=== PATIENT | male | born 1975 | race Caucasian/White ===

== ENCOUNTER 2020-09-26 11:49 | Outpatient (REF) | payer MEDICARE, MEDICAID, SELFPAY | END 2020-09-26 11:50 | disposition home or self-care (01) | LOC: HO.LAB 11:49 | PROVIDERS: PCP Otolaryngology; Visit Provider Internal Medicine | DX: Z20.828 Contact with and (suspected) exposure to other viral communicable diseases (principal) | CPT/HCPCS: C9803; U0003 ==

== ENCOUNTER 2023-01-21 15:03 | Emergency (ER) | payer MEDICARE, MEDICAID, SELFPAY ==
--- NOTE | 2023-01-21 | ECG_ITS ---
Test Reason : prolonged QT Blood Pressure : / mmHG Vent. Rate : 056 BPM Atrial Rate : 056 BPM P-R Int : 166 ms QRS Dur : 086 ms QT Int : 450 ms P-R-T Axes : 082 074 067 degrees QTc Int : 434 ms Sinus bradycardia Otherwise normal ECG No previous ECGs available Referred By: Eugenie Bates Electronically Signed By:RONNY OTTO MD
--- NOTE | 2023-01-21 15:17 | ED_ITS ---
HPI - Psych General Chief Complaint: Psychiatric Symptoms <LUIS DANIEL Cavazos - Last Filed: 01/21/23 15:18> Stated Complaint: Crisis <LUIS DANIEL Cavazos - Last Filed: 01/21/23 15:18> Time Seen by Provider: 01/21/23 15:45 <LUIS DANIEL Cavazos - Last Filed: 01/21/23 15:18> Source: patient <Eugenie Bates NP - Last Filed: 01/21/23 23:55> Mode of arrival: ambulatory <Eugenie Bates NP - Last Filed: 01/21/23 23:55> Limitations: no limitations <Eugenie Bates NP - Last Filed: 01/21/23 23:55> History of Present Illness HPI Narrative: 47-year-old male presents for crisis evaluation. States that he has worsening depression, has had 4 family members in the past 2 years, father the day after [place] Day last year, mother in November, and states that 2 of his girlfriend's have over the past 2 years. Patient states that everything is catching up to him. Also states that he has lost 100 lb due to depression. <Eugenie Bates NP - Last Filed: 01/21/23 23:55> MD complaint: feels depressed <Eugenie Bates NP - Last Filed: 01/21/23 23:55> Onset (ago): year(s) <Eugenie Bates NP - Last Filed: 01/21/23 23:55> Duration: getting worse <Eugenie Bates NP - Last Filed: 01/21/23 23:55> History of same: No <Eugenie Bates NP - Last Filed: 01/21/23 23:55> Relieving factors: none <Eugenie Bates NP - Last Filed: 01/21/23 23:55> Context: significant life stressor <Eugenie Bates NP - Last Filed: 01/21/23 23:55> Associated psychiatric symptoms: depression <Eugenie Bates NP - Last Filed: 01/21/23 23:55> Associated symptoms: denies other symptoms <Eugenie Bates NP - Last Filed: 01/21/23 23:55> Treatments prior to arrival: none <Eugenie Bates NP - Last Filed: 01/21/23 23:55> Related Data Home Medications: Home Medications Medication Instructions Recorded Confirmed bupropion HCl 300 mg 24 hr tablet, 1 tab PO QAM 01/21/23 01/21/23 extended release buspirone 10 mg tablet 10 mg PO CONT. PER PROTOCOL 01/21/23 01/21/23 clonazepam 1 mg tablet 1 mg PO CONT. PER PROTOCOL 01/21/23 01/21/23 gabapentin 600 mg tablet 1 tab PO TID 01/21/23 01/21/23 venlafaxine 150 mg 1 cap PO BEDTIME 01/21/23 01/21/23 capsule,extended release 24 hr venlafaxine 75 mg capsule,extended 1 cap PO QPM 01/21/23 01/21/23 release 24 hr <LUIS DANIEL Cavazos - Last Filed: 01/21/23 15:18> Allergies/Adverse Reactions: Allergies Allergy/AdvReac Type Severity Reaction Status Date / Time egg Allergy Gastrointestinal Verified 01/21/23 15:53 Upset mayonnaise Allergy Gastrointestinal Verified 01/21/23 15:53 Upset onion Allergy Gastrointestinal Verified 01/21/23 15:53 Upset Peppers, Green Allergy Gastrointestinal Verified 01/21/23 15:53 Upset <LUIS DANIEL Cavazos - Last Filed: 01/21/23 15:18> Review of Systems Review of Systems: Constitutional: No Fever, No Chills, positive unintentional weight loss Cardiovascular: No Chest Pain, No SOB Respiratory: No Cough, No Sputum, No Dyspnea Gastrointestinal: No Nausea, No Vomiting, No Diarrhea, No Hematochezia, No Melena Genitourinary: No Dysuria, No Urinary Frequency, No Hematuria Musculoskeletal: No Myalgias Skin: No Skin Lesions, No rash Neuro: No Weakness, No Numbness, No Paresthesias, No Dizziness, No Headache Psych: positive Anxiety, positive Depression, no SI HI <TITO Batista Last Filed: 01/21/23 23:55> Yes all other systems are reviewed and are negative <TITO Batista Last Filed: 01/21/23 23:55> PMFSH Past Medical History Attestation statement: The following information was validated with the patient. <Eugenie Bates NP - Last Filed: 01/21/23 23:55> Source: old records reviewed <Eugenie Bates NP - Last Filed: 01/21/23 23:55> Social History Social History: Social History Alcohol intake: never Smoked in Last 30 Days: Yes Use of substances other than those prescribed or required for medical reasons: Yes Substance Use Type: Marijuana Advance Directives: No Advance Directives Information Provided: Yes <LUIS DANIEL Cavazos - Last Filed: 01/21/23 15:18> Physical Exam Vital Signs: Vital Signs: Last Vital Signs Temp 98.2 F 01/22/23 08:50 Pulse 104 H 01/22/23 08:50 Resp 14 01/22/23 08:50 BP 152/86 H 01/22/23 08:50 Pulse Ox 93 01/22/23 08:50 O2 Del Method 01/22/23 08:50 BMI result Body Mass Index 24.1 <LUIS DANIEL Cavazos - Last Filed: 01/21/23 15:18> Vital Signs: Last Vital Signs Temp 98.2 F 01/22/23 08:50 Pulse 104 H 01/22/23 08:50 Resp 14 01/22/23 08:50 BP 152/86 H 01/22/23 08:50 Pulse Ox 93 01/22/23 08:50 O2 Del Method 01/22/23 08:50 BMI result Body Mass Index 24.1 <Eugenie Bates NP - Last Filed: 01/21/23 23:55> Vital Signs: Last Vital Signs Temp 98.2 F 01/22/23 08:50 Pulse 104 H 01/22/23 08:50 Resp 14 01/22/23 08:50 BP 152/86 H 01/22/23 08:50 Pulse Ox 93 01/22/23 08:50 O2 Del Method 01/22/23 08:50 BMI result Body Mass Index 24.1 <Ankur Harrison MD - Last Filed: 01/22/23 14:05> Appearance: Alert. Oriented X3. Tearful. Eyes: Pupils equal, round and reactive to light. ENT: Pharynx normal. Neck: Normal inspection. Neck supple. CVS: Normal heart rate and rhythm. Pulses normal. Respiratory: No respiratory distress. Breath sounds normal. Extremities: No lower extremity edema. Gait well balanced well coordinated. Neuro: No motor deficit. No sensory deficit. Cranial nerves 2-12 intact. <Kalina Bates NP - Last Filed: 01/21/23 23:55> Course Course Course Narrative: This is an RME: Additional HPI, ROS, PE not included below will be deferred to primary provider. 47-year-old male presents with anxiety, depression, reports multiple deaths in the family and close acquaintances, worsening over the past few days has not been eating and drinking well. Has little energy to do things. Reports constant fatigue. According to family has been hallucinating and not taking care of self. Patient denies hallucinations. Denies drugs, alcohol tobacco. Denies medical complaints. Rapid physical exam benign Plan medical clearance evaluation by behavioral health team. <LUIS DANIEL Cavazos - Last Filed: 01/21/23 15:18> This is an RME: Additional HPI, ROS, PE not included below will be deferred to primary provider. 47-year-old male presents with anxiety, depression, reports multiple deaths in the family and close acquaintances, worsening over the past few days has not been eating and drinking well. Has little energy to do things. Reports constant fatigue. According to family has been hallucinating and not taking care of self. Patient denies hallucinations. Denies drugs, alcohol tobacco. Denies medical complaints. Rapid physical exam benign Plan medical clearance evaluation by behavioral health team. 16:00 47-year-old male presents for crisis evaluation for multiple deaths and wo rsening depression. States he has an initial weight loss of over 100 lb over the past 2 years, relates it directly to words depression and having poor appetite. He states to be continuously tired. He is tearful during our discussion, he does not report suicidal or homicidal ideations. States that he is so depressed he does know which do with himself. Labs are pending. Crisis consult is pending. 19:40 N consult complete, plan of care is for follow-up in the morning re- evaluation. Physician observation at this time <Eugenie Bates NP - Last Filed: 01/21/23 23:55> Reevaluation(s) Reevaluation #1: 47-year-old male feeling depressed but no SI or HI, no auditory halluci nation seen and examined by care team we both agreed on the plan. Patient will be discharged to his home in [facility] safe to be discharged. <Ankur Harrison MD - Last Filed: 01/22/23 14:05> Time: 14:04 <Ankur Harrison MD - Last Filed: 01/22/23 14:05> Medications Administered Generic Name Dose Route Start Last Admin Trade Name Freq PRN Reason Stop Dose Admin Bupropion HCl 300 mg 01/21/23 16:00 01/22/23 09:31 Bupropion Hcl Xl 300 Mg Tab.Er.24h PO 300 mg DAILY DEYANIRA Administration Buspirone HCl 15 mg 01/22/23 09:00 01/22/23 09:31 Buspirone Hcl 10 Mg Tablet PO 15 mg BID@0900,1500 DEYANIRA Administration Buspirone HCl 20 mg 01/21/23 21:00 01/21/23 20:27 Buspirone Hcl 10 Mg Tablet PO 20 mg BEDTIME DEYANIRA Administration Clonazepam 1 mg 01/21/23 21:00 01/22/23 09:32 Clonazepam 1 Mg Tablet PO 1 mg TID DEYANIRA Administration Gabapentin 600 mg 01/21/23 16:00 01/22/23 09:32 Gabapentin 600 Mg Tablet PO 600 mg TID DEYANIRA Administration Venlafaxine HCl 75 mg 01/21/23 21:00 01/21/23 20:27 Venlafaxine Hcl Er 75 Mg Cap.Er.24h PO 75 mg BEDTIME DEYANIRA Administration Venlafaxine HCl 150 mg 01/21/23 21:00 01/21/23 20:27 Venlafaxine Hcl Er 150 Mg Cap.Er.24h PO 150 mg BEDTIME DEYANIRA Administration Discontinued Medications Generic Name Dose Route Start Last Admin Trade Name Freq PRN Reason Stop Dose Admin Clonazepam 1 mg 01/21/23 16:01 01/21/23 16:33 Clonazepam 1 Mg Tablet PO 01/21/23 16:02 1 mg ONCE ONE Administration Nicotine 21 mg 01/21/23 16:50 01/21/23 18:19 Nicotine 21 Mg Patch.Td24 TRANSDERMA 01/21/23 16:51 21 mg ONCE ONE Administration <LUIS DANIEL Cavazos - Last Filed: 01/21/23 15:18> Medications Administered Generic Name Dose Route Start Last Admin Trade Name Freq PRN Reason Stop Dose Admin Bupropion HCl 300 mg 01/21/23 16:00 01/22/23 09:31 Bupropion Hcl Xl 300 Mg Tab.Er.24h PO 300 mg DAILY DEYANIRA Administration Buspirone HCl 15 mg 01/22/23 09:00 01/22/23 09:31 Buspirone Hcl 10 Mg Tablet PO 15 mg BID@0900,1500 DEYANIRA Administration Buspirone HCl 20 mg 01/21/23 21:00 01/21/23 20:27 Buspirone Hcl 10 Mg Tablet PO 20 mg BEDTIME DEYANIRA Administration Clonazepam 1 mg 01/21/23 21:00 01/22/23 09:32 Clonazepam 1 Mg Tablet PO 1 mg TID DEYANIRA Administration Gabapentin 600 mg 01/21/23 16:00 01/22/23 09:32 Gabapentin 600 Mg Tablet PO 600 mg TID DEYANIRA Administration Venlafaxine HCl 75 mg 01/21/23 21:00 01/21/23 20:27 Venlafaxine Hcl Er 75 Mg Cap.Er.24h PO 75 mg BEDTIME DEYANIRA Administration Venlafaxine HCl 150 mg 01/21/23 21:00 01/21/23 20:27 Venlafaxine Hcl Er 150 Mg Cap.Er.24h PO 150 mg BEDTIME DEYANIRA Administration Discontinued Medications Generic Name Dose Route Start Last Admin Trade Name Freq PRN Reason Stop Dose Admin Clonazepam 1 mg 01/21/23 16:01 01/21/23 16:33 Clonazepam 1 Mg Tablet PO 01/21/23 16:02 1 mg ONCE ONE Administration Nicotine 21 mg 01/21/23 16:50 01/21/23 18:19 Nicotine 21 Mg Patch.Td24 TRANSDERMA 01/21/23 16:51 21 mg ONCE ONE Administration <Eugenie Bates NP - Last Filed: 01/21/23 23:55> Medications Administered Generic Name Dose Route Start Last Admin Trade Name Freq PRN Reason Stop Dose Admin Bupropion HCl 300 mg 01/21/23 16:00 01/22/23 09:31 Bupropion Hcl Xl 300 Mg Tab.Er.24h PO 300 mg DAILY DEYANIRA Administration Buspirone HCl 15 mg 01/22/23 09:00 01/22/23 09:31 Buspirone Hcl 10 Mg Tablet PO 15 mg BID@0900,1500 DEYANIRA Administration Buspirone HCl 20 mg 01/21/23 21:00 01/21/23 20:27 Buspirone Hcl 10 Mg Tablet PO 20 mg BEDTIME DEYANIRA Administration Clonazepam 1 mg 01/21/23 21:00 01/22/23 09:32 Clonazepam 1 Mg Tablet PO 1 mg TID DEYANIRA Administration Gabapentin 600 mg 01/21/23 16:00 01/22/23 09:32 Gabapentin 600 Mg Tablet PO 600 mg TID DEYANIRA Administration Venlafaxine HCl 75 mg 01/21/23 21:00 01/21/23 20:27 Venlafaxine Hcl Er 75 Mg Cap.Er.24h PO 75 mg BEDTIME DEYANIRA Administration Venlafaxine HCl 150 mg 01/21/23 21:00 01/21/23 20:27 Venlafaxine Hcl Er 150 Mg Cap.Er.24h PO 150 mg BEDTIME DEYANIRA Administration Discontinued Medications Generic Name Dose Route Start Last Admin Trade Name Rmq PRN Reason Stop Dose Admin Clonazepam 1 mg 01/21/23 16:01 01/21/23 16:33 Clonazepam 1 Mg Tablet PO 01/21/23 16:02 1 mg ONCE ONE Administration Nicotine 21 mg 01/21/23 16:50 01/21/23 18:19 Nicotine 21 Mg Patch.Td24 TRANSDERMA 01/21/23 16:51 21 mg ONCE ONE Administration <Ankur Harrison MD - Last Filed: 01/22/23 14:05> Medical Decision Making Differential Diagnosis Differential Diagnoses: The differential diagnosis associated with the presentation includes <Eugenie Bates NP - Last Filed: 01/21/23 23:55> Depression, complex grieving <Eugenie Bates NP - Last Filed: 01/21/23 23:55> Admission/Observation Consideration of admission/observation: Escalation of care including admission/observation considered <Eugenie Bates NP - Last Filed: 01/21/23 23:55> M5 admission recommended by this RECRUITING MANAGER <Eugenie Bates NP - Last Filed: 01/21/23 23:55> Consult Healthcare Provider Management of the patient was discussed with: Behavioral Health Provider <Eugenie Bates NP - Last Filed: 01/21/23 23:55> Lab Data MDM Lab Attestation statement: I reviewed the patient's lab results. <Eugenie Bates NP - Last Filed: 01/21/23 23:55> Result Diagrams: 01/21/23 16:16 01/21/23 16:16 <LUIS DANIEL Cavazos - Last Filed: 01/21/23 15:18> Labs: Lab Results 01/21/23 01/21/23 01/21/23 Range/Units 15:58 15:58 15:58 WBC (4.8-10.8) X10*3/uL RBC (4.60-5.80) X10*6/uL Hgb (14.0-18.0) g/dl Hct (42.0-52.0) % MCV (80.0-98.0) fL MCH (27.0-33.0) pg MCHC (31.0-36.0) g/dl RDW (11.0-16.0) % Plt Count (160-400) X10*3/uL MPV (9.4-12.4) fL Immature Gran % (Auto) (0.0-0.4) % Neut % (Auto) (45-73) % Lymph % (Auto) (20-40) % [place] % (Auto) (2-11) % Eos % (Auto) (0-4) % Baso % (Auto) (0-2) % Lymph # (Auto) (1.2-4.9) X10*3/uL [place] # (Auto) (0.1-1.2) X10*3/uL Eos # (Auto) (0.0-0.4) X10*3/uL Baso # (Auto) (0.0-0.2) X10*3/uL Abs Immat Gran (auto) (0.00-0.03) X10*3/uL Absolute Neuts (auto) (2.0-8.3) x10*3/uL Absolute Nucleated RBC (0.0-0.012) X10*3/uL Nucleated RBC % (auto) (0.0-0.2) /100WBC Sodium (135-145) mmol/L Potassium (3.3-5.1) mmol/L Chloride (96-108) mmol/L Carbon Dioxide (22-29) mmol/L Anion Gap (12-20) BUN (9-16) mg/dL Creatinine (0.5-1.4) mg/dL Estim Creat Clear Calc Estimated GFR Random Glucose (60-115) mg/dL Calcium (8.4-10.2) mg/dL Magnesium (1.6-2.6) mg/dL Total Bilirubin (0.0-1.0) mg/dL AST (5-37) U/L ALT (0-40) U/L Alkaline Phosphatase (39-117) U/L Total Protein (6.5-8.0) g/dL Albumin (3.5-5.0) g/dL Urine Color Yellow Urine Appearance Clear Urine pH 5.0 (5.0-9.0) Ur Specific [place] 1.015 (1.005-1.025) Urine Protein Negative (Neg-Trace) mg/dL Urine Glucose (UA) Negative (Negative) mg/dL Urine Ketones Negative (Negative) mg/dL Urine Blood Negative (Negative) Urine Nitrite Negative (Negative) Ur Leukocyte Esterase Negative (Negative) Salicylates (15-30) mg/dL Urine Opiates Screen POSITIVE H (Not Detect) Urine Fentanyl Screen POSITIVE H (Not Detect) Acetaminophen (<30) mcg/mL Ur Barbiturates Screen Not Detected (Not Detect) Ur Phencyclidine Scrn Not Detected (Not Detect) Ur Amphetamines Screen Not Detected (Not Detect) U Benzodiazepines Scrn POSITIVE H (Not Detect) Urine Cocaine Screen POSITIVE H (Not Detect) U Marijuana (THC) Screen POSITIVE H (Not Detect) Ethyl Alcohol mg/dL COVID-19 (MOLLY) Negative (Negative) COVID-19 Clin Com See Note 01/21/23 01/21/23 Range/Units 16:16 16:16 WBC 7.2 (4.8-10.8) X10*3/uL RBC 4.63 (4.60-5.80) X10*6/uL Hgb 13.5 L (14.0-18.0) g/dl Hct 40.5 L (42.0-52.0) % MCV 87.5 (80.0-98.0) fL MCH 29.2 (27.0-33.0) pg MCHC 33.3 (31.0-36.0) g/dl RDW 13.6 (11.0-16.0) % Plt Count 203 (160-400) X10*3/uL MPV 9.7 (9.4-12.4) fL Immature Gran % (Auto) 0.3 (0.0-0.4) % Neut % (Auto) 60.6 (45-73) % Lymph % (Auto) 25.8 (20-40) % [place] % (Auto) 5.4 (2-11) % Eos % (Auto) 7.2 H (0-4) % Baso % (Auto) 0.7 (0-2) % Lymph # (Auto) 1.9 (1.2-4.9) X10*3/uL [place] # (Auto) 0.4 (0.1-1.2) X10*3/uL Eos # (Auto) 0.5 H (0.0-0.4) X10*3/uL Baso # (Auto) 0.1 (0.0-0.2) X10*3/uL Abs Immat Gran (auto) 0.02 (0.00-0.03) X10*3/uL Absolute Neuts (auto) 4.4 (2.0-8.3) x10*3/uL Absolute Nucleated RBC 0.000 (0.0-0.012) X10*3/uL Nucleated RBC % (auto) 0.0 (0.0-0.2) /100WBC Sodium 140 (135-145) mmol/L Potassium 4.2 (3.3-5.1) mmol/L Chloride 105 (96-108) mmol/L Carbon Dioxide 29 (22-29) mmol/L Anion Gap 10 L (12-20) BUN 9 (9-16) mg/dL Creatinine 0.79 (0.5-1.4) mg/dL Estim Creat Clear Calc 108.0 Estimated GFR > 60 Random Glucose 128 H (60-115) mg/dL Calcium 9.8 (8.4-10.2) mg/dL Magnesium 2.1 (1.6-2.6) mg/dL Total Bilirubin 0.4 (0.0-1.0) mg/dL AST 15 (5-37) U/L ALT 14 (0-40) U/L Alkaline Phosphatase 74 (39-117) U/L Total Protein 6.4 L (6.5-8.0) g/dL Albumin 3.8 (3.5-5.0) g/dL Urine Color Urine Appearance Urine pH (5.0-9.0) Ur Specific [place] (1.005-1.025) Urine Protein (Neg-Trace) mg/dL Urine Glucose (UA) (Negative) mg/dL Urine Ketones (Negative) mg/dL Urine Blood (Negative) Urine Nitrite (Negative) Ur Leukocyte Esterase (Negative) Salicylates < 5.0 L (15-30) mg/dL Urine Opiates Screen (Not Detect) Urine Fentanyl Screen (Not Detect) Acetaminophen < 17 (<30) mcg/mL Ur Barbiturates Screen (Not Detect) Ur Phencyclidine Scrn (Not Detect) Ur Amphetamines Screen (Not Detect) U Benzodiazepines Scrn (Not Detect) Urine Cocaine Screen (Not Detect) U Marijuana (THC) Screen (Not Detect) Ethyl Alcohol < 10 mg/dL COVID-19 (MOLLY) (Negative) COVID-19 Clin Com <LUIS DANIEL Cavazos - Last Filed: 01/21/23 15:18> Lab Results 01/21/23 01/21/23 01/21/23 Range/Units 15:58 15:58 15:58 WBC (4.8-10.8) X10*3/uL RBC (4.60-5.80) X10*6/uL Hgb (14.0-18.0) g/dl Hct (42.0-52.0) % MCV (80.0-98.0) fL MCH (27.0-33.0) pg MCHC (31.0-36.0) g/dl RDW (11.0-16.0) % Plt Count (160-400) X10*3/uL MPV (9.4-12.4) fL Immature Gran % (Auto) (0.0-0.4) % Neut % (Auto) (45-73) % Lymph % (Auto) (20-40) % [place] % (Auto) (2-11) % Eos % (Auto) (0-4) % Baso % (Auto) (0-2) % Lymph # (Auto) (1.2-4.9) X10*3/uL [place] # (Auto) (0.1-1.2) X10*3/uL Eos # (Auto) (0.0-0.4) X10*3/uL Baso # (Auto) (0.0-0.2) X10*3/uL Abs Immat Gran (auto) (0.00-0.03) X10*3/uL Absolute Neuts (auto) (2.0-8.3) x10*3/uL Absolute Nucleated RBC (0.0-0.012) X10*3/uL Nucleated RBC % (auto) (0.0-0.2) /100WBC Sodium (135-145) mmol/L Potassium (3.3-5.1) mmol/L Chloride (96-108) mmol/L Carbon Dioxide (22-29) mmol/L Anion Gap (12-20) BUN (9-16) mg/dL Creatinine (0.5-1.4) mg/dL Estim Creat Clear Calc Estimated GFR Random Glucose (60-115) mg/dL Calcium (8.4-10.2) mg/dL Magnesium (1.6-2.6) mg/dL Total Bilirubin (0.0-1.0) mg/dL AST (5-37) U/L ALT (0-40) U/L Alkaline Phosphatase (39-117) U/L Total Protein (6.5-8.0) g/dL Albumin (3.5-5.0) g/dL Urine Color Yellow Urine Appearance Clear Urine pH 5.0 (5.0-9.0) Ur Specific [place] 1.015 (1.005-1.025) Urine Protein Negative (Neg-Trace) mg/dL Urine Glucose (UA) Negative (Negative) mg/dL Urine Ketones Negative (Negative) mg/dL Urine Blood Negative (Negative) Urine Nitrite Negative (Negative) Ur Leukocyte Esterase Negative (Negative) Salicylates (15-30) mg/dL Urine Opiates Screen POSITIVE H (Not Detect) Urine Fentanyl Screen POSITIVE H (Not Detect) Acetaminophen (<30) mcg/mL Ur Barbiturates Screen Not Detected (Not Detect) Ur Phencyclidine Scrn Not Detected (Not Detect) Ur Amphetamines Screen Not Detected (Not Detect) U Benzodiazepines Scrn POSITIVE H (Not Detect) Urine Cocaine Screen POSITIVE H (Not Detect) U Marijuana (THC) Screen POSITIVE H (Not Detect) Ethyl Alcohol mg/dL COVID-19 (MOLLY) Negative (Negative) COVID-19 Clin Com See Note 01/21/23 01/21/23 Range/Units 16:16 16:16 WBC 7.2 (4.8-10.8) X10*3/uL RBC 4.63 (4.60-5.80) X10*6/uL Hgb 13.5 L (14.0-18.0) g/dl Hct 40.5 L (42.0-52.0) % MCV 87.5 (80.0-98.0) fL MCH 29.2 (27.0-33.0) pg MCHC 33.3 (31.0-36.0) g/dl RDW 13.6 (11.0-16.0) % Plt Count 203 (160-400) X10*3/uL MPV 9.7 (9.4-12.4) fL Immature Gran % (Auto) 0.3 (0.0-0.4) % Neut % (Auto) 60.6 (45-73) % Lymph % (Auto) 25.8 (20-40) % [place] % (Auto) 5.4 (2-11) % Eos % (Auto) 7.2 H (0-4) % Baso % (Auto) 0.7 (0-2) % Lymph # (Auto) 1.9 (1.2-4.9) X10*3/uL [place] # (Auto) 0.4 (0.1-1.2) X10*3/uL Eos # (Auto) 0.5 H (0.0-0.4) X10*3/uL Baso # (Auto) 0.1 (0.0-0.2) X10*3/uL Abs Immat Gran (auto) 0.02 (0.00-0.03) X10*3/uL Absolute Neuts (auto) 4.4 (2.0-8.3) x10*3/uL Absolute Nucleated RBC 0.000 (0.0-0.012) X10*3/uL Nucleated RBC % (auto) 0.0 (0.0-0.2) /100WBC Sodium 140 (135-145) mmol/L Potassium 4.2 (3.3-5.1) mmol/L Chloride 105 (96-108) mmol/L Carbon Dioxide 29 (22-29) mmol/L Anion Gap 10 L (12-20) BUN 9 (9-16) mg/dL Creatinine 0.79 (0.5-1.4) mg/dL Estim Creat Clear Calc 108.0 Estimated GFR > 60 Random Glucose 128 H (60-115) mg/dL Calcium 9.8 (8.4-10.2) mg/dL Magnesium 2.1 (1.6-2.6) mg/dL Total Bilirubin 0.4 (0.0-1.0) mg/dL AST 15 (5-37) U/L ALT 14 (0-40) U/L Alkaline Phosphatase 74 (39-117) U/L Total Protein 6.4 L (6.5-8.0) g/dL Albumin 3.8 (3.5-5.0) g/dL Urine Color Urine Appearance Urine pH (5.0-9.0) Ur Specific [place] (1.005-1.025) Urine Protein (Neg-Trace) mg/dL Urine Glucose (UA) (Negative) mg/dL Urine Ketones (Negative) mg/dL Urine Blood (Negative) Urine Nitrite (Negative) Ur Leukocyte Esterase (Negative) Salicylates < 5.0 L (15-30) mg/dL Urine Opiates Screen (Not Detect) Urine Fentanyl Screen (Not Detect) Acetaminophen < 17 (<30) mcg/mL Ur Barbiturates Screen (Not Detect) Ur Phencyclidine Scrn (Not Detect) Ur Amphetamines Screen (Not Detect) U Benzodiazepines Scrn (Not Detect) Urine Cocaine Screen (Not Detect) U Marijuana (THC) Screen (Not Detect) Ethyl Alcohol < 10 mg/dL COVID-19 (MOLLY) (Negative) COVID-19 Clin Com <Eugenie Bates NP - Last Filed: 01/21/23 23:55> Lab Results 01/21/23 01/21/23 01/21/23 Range/Units 15:58 15:58 15:58 WBC (4.8-10.8) X10*3/uL RBC (4.60-5.80) X10*6/uL Hgb (14.0-18.0) g/dl Hct (42.0-52.0) % MCV (80.0-98.0) fL MCH (27.0-33.0) pg MCHC (31.0-36.0) g/dl RDW (11.0-16.0) % Plt Count (160-400) X10*3/uL MPV (9.4-12.4) fL Immature Gran % (Auto) (0.0-0.4) % Neut % (Auto) (45-73) % Lymph % (Auto) (20-40) % [place] % (Auto) (2-11) % Eos % (Auto) (0-4) % Baso % (Auto) (0-2) % Lymph # (Auto) (1.2-4.9) X10*3/uL [place] # (Auto) (0.1-1.2) X10*3/uL Eos # (Auto) (0.0-0.4) X10*3/uL Baso # (Auto) (0.0-0.2) X10*3/uL Abs Immat Gran (auto) (0.00-0.03) X10*3/uL Absolute Neuts (auto) (2.0-8.3) x10*3/uL Absolute Nucleated RBC (0.0-0.012) X10*3/uL Nucleated RBC % (auto) (0.0-0.2) /100WBC Sodium (135-145) mmol/L Potassium (3.3-5.1) mmol/L Chloride (96-108) mmol/L Carbon Dioxide (22-29) mmol/L Anion Gap (12-20) BUN (9-16) mg/dL Creatinine (0.5-1.4) mg/dL Estim Creat Clear Calc Estimated GFR Random Glucose (60-115) mg/dL Calcium (8.4-10.2) mg/dL Magnesium (1.6-2.6) mg/dL Total Bilirubin (0.0-1.0) mg/dL AST (5-37) U/L ALT (0-40) U/L Alkaline Phosphatase (39-117) U/L Total Protein (6.5-8.0) g/dL Albumin (3.5-5.0) g/dL Urine Color Yellow Urine Appearance Clear Urine pH 5.0 (5.0-9.0) Ur Specific [place] 1.015 (1.005-1.025) Urine Protein Negative (Neg-Trace) mg/dL Urine Glucose (UA) Negative (Negative) mg/dL Urine Ketones Negative (Negative) mg/dL Urine Blood Negative (Negative) Urine Nitrite Negative (Negative) Ur Leukocyte Esterase Negative (Negative) Salicylates (15-30) mg/dL Urine Opiates Screen POSITIVE H (Not Detect) Urine Fentanyl Screen POSITIVE H (Not Detect) Acetaminophen (<30) mcg/mL Ur Barbiturates Screen Not Detected (Not Detect) Ur Phencyclidine Scrn Not Detected (Not Detect) Ur Amphetamines Screen Not Detected (Not Detect) U Benzodiazepines Scrn POSITIVE H (Not Detect) Urine Cocaine Screen POSITIVE H (Not Detect) U Marijuana (THC) Screen POSITIVE H (Not Detect) Ethyl Alcohol mg/dL COVID-19 (MOLLY) Negative (Negative) COVID-19 Clin Com See Note 01/21/23 01/21/23 Range/Units 16:16 16:16 WBC 7.2 (4.8-10.8) X10*3/uL RBC 4.63 (4.60-5.80) X10*6/uL Hgb 13.5 L (14.0-18.0) g/dl Hct 40.5 L (42.0-52.0) % MCV 87.5 (80.0-98.0) fL MCH 29.2 (27.0-33.0) pg MCHC 33.3 (31.0-36.0) g/dl RDW 13.6 (11.0-16.0) % Plt Count 203 (160-400) X10*3/uL MPV 9.7 (9.4-12.4) fL Immature Gran % (Auto) 0.3 (0.0-0.4) % Neut % (Auto) 60.6 (45-73) % Lymph % (Auto) 25.8 (20-40) % [place] % (Auto) 5.4 (2-11) % Eos % (Auto) 7.2 H (0-4) % Baso % (Auto) 0.7 (0-2) % Lymph # (Auto) 1.9 (1.2-4.9) X10*3/uL [place] # (Auto) 0.4 (0.1-1.2) X10*3/uL Eos # (Auto) 0.5 H (0.0-0.4) X10*3/uL Baso # (Auto) 0.1 (0.0-0.2) X10*3/uL Abs Immat Gran (auto) 0.02 (0.00-0.03) X10*3/uL Absolute Neuts (auto) 4.4 (2.0-8.3) x10*3/uL Absolute Nucleated RBC 0.000 (0.0-0.012) X10*3/uL Nucleated RBC % (auto) 0.0 (0.0-0.2) /100WBC Sodium 140 (135-145) mmol/L Potassium 4.2 (3.3-5.1) mmol/L Chloride 105 (96-108) mmol/L Carbon Dioxide 29 (22-29) mmol/L Anion Gap 10 L (12-20) BUN 9 (9-16) mg/dL Creatinine 0.79 (0.5-1.4) mg/dL Estim Creat Clear Calc 108.0 Estimated GFR > 60 Random Glucose 128 H (60-115) mg/dL Calcium 9.8 (8.4-10.2) mg/dL Magnesium 2.1 (1.6-2.6) mg/dL Total Bilirubin 0.4 (0.0-1.0) mg/dL AST 15 (5-37) U/L ALT 14 (0-40) U/L Alkaline Phosphatase 74 (39-117) U/L Total Protein 6.4 L (6.5-8.0) g/dL Albumin 3.8 (3.5-5.0) g/dL Urine Color Urine Appearance Urine pH (5.0-9.0) Ur Specific [place] (1.005-1.025) Urine Protein (Neg-Trace) mg/dL Urine Glucose (UA) (Negative) mg/dL Urine Ketones (Negative) mg/dL Urine Blood (Negative) Urine Nitrite (Negative) Ur Leukocyte Esterase (Negative) Salicylates < 5.0 L (15-30) mg/dL Urine Opiates Screen (Not Detect) Urine Fentanyl Screen (Not Detect) Acetaminophen < 17 (<30) mcg/mL Ur Barbiturates Screen (Not Detect) Ur Phencyclidine Scrn (Not Detect) Ur Amphetamines Screen (Not Detect) U Benzodiazepines Scrn (Not Detect) Urine Cocaine Screen (Not Detect) U Marijuana (THC) Screen (Not Detect) Ethyl Alcohol < 10 mg/dL COVID-19 (MOLLY) (Negative) COVID-19 Clin Com <Ankur Harrison MD - Last Filed: 01/22/23 14:05> External Record Review No prior records at this facility for this patient <Eugenie Bates NP - Last Filed: 01/21/23 23:55> Prescription Management I considered prescription management with: Other (anxiolytic) <Eugenie Bates NP - Last Filed: 01/21/23 23:55> Social Determinants Patient?s care significantly limited by Social Determinants of Health including: Other Social Determinant of Health <Eugenie Bates NP - Last Filed: 01/21/23 23:55> Discharge Plan Discharge Clinical Impression: Depression, 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 PER PROTOCOL venlafaxine 150 mg capsule,extended release 24hr 1 cap PO BEDTIME buspirone 10 mg tablet 10 mg PO CONT. PER PROTOCOL bupropion HCl 300 mg tablet extended release 24 hr 1 tab PO QAM <LUIS DANIEL Cavazos - Last Filed: 01/21/23 15:18> Referrals: Physician,Unknown J [Primary Care Provider] - <LUIS DANIEL Cavazos - Last Filed: 01/21/23 15:18> Interventions: [place]-Suicide Risk Severity Scale Last Done: 01/22/23 04:34 <LUIS DANIEL Cavazos - Last Filed: 01/21/23 15:18>
[2023-01-21 15:47] VITALS: BP 121/66; PULSE 86; RESP 16; TEMP 36.6; O2SAT 96; BMI 24.1
--- NOTE | 2023-01-21 16:07 | PC.NURSE ---
pt a&ox3, tearful, reports worsening depression, multiple recent deaths in family, denies SI/HI, labs drawn by tech, urine sample obtained, pt changed over and belongings secured.
[2023-01-21 16:13] LABS: Appearance Urine Clear; Color Urine Yellow; Glucose Urine UA Negative (Negative); Leukocyte Esterase Urine Negative (Negative); Nitrite Urine Negative (Negative); Specific Gravity - Urine 1.015 (1.005-1.025); Urine Blood Negative (Negative); Urine Ketones Negative (Negative); Urine Protein Negative (Neg-Trace)
[2023-01-21 16:22] LABS: MANUAL DIFF FLAG NO
[2023-01-21 16:22] LABS: Amphetamine Screen Urine Not Detected (Not Detect); Barbiturates, Urine Not Detected (Not Detect); Benzodiazepines Screen Urine POSITIVE (Not Detect); Cannabinoid Screen Urine POSITIVE (Not Detect); Cocaine Screen Urine POSITIVE (Not Detect); Fentanyl, urine POSITIVE (Not Detect); Opiate Screen Urine POSITIVE (Not Detect); Phencyclidine Screen Urine Not Detected (Not Detect)
[2023-01-21 16:27] LABS: COVID-19 Test Negative (Negative); IDNOW Serial# BCCEAD1C
[2023-01-21 16:27] LABS: Basophils Absolute Auto 0.1 X10*3/uL (0.0-0.2); Basophils Percent Auto 0.7 % (0-2); Eosinophils Absolute Auto 0.5 X10*3/uL (0.0-0.4); Eosinophils Percent Auto 7.2 % (0-4); Hematocrit 40.5 % (42.0-52.0); Hemoglobin 13.5 g/dl (14.0-18.0); Imm Gran Abs Auto 0.02 X10*3/uL (0.00-0.03); Imm Gran Pct Auto 0.3 % (0.0-0.4); Lymphocytes Absolute Auto 1.9 X10*3/uL (1.2-4.9); Lymphocytes Percent Auto 25.8 % (20-40); Mean Corpuscular HGB Conc 33.3 g/dl (31.0-36.0); Mean Corpuscular Hemoglobin 29.2 pg (27.0-33.0); Mean Corpuscular Volume 87.5 fL (80.0-98.0); Mean Platelet Volume 9.7 fL (9.4-12.4); Monocytes Absolute Auto 0.4 X10*3/uL (0.1-1.2); Monocytes Percent Auto 5.4 % (2-11); Neutrophils Absolute Auto 4.4 x10*3/uL (2.0-8.3); Neutrophils Percent Auto 60.6 % (45-73); Platelet Count 203 X10*3/uL (160-400); Red Blood Count 4.63 X10*6/uL (4.60-5.80); Red Cell Distribution Width 13.6 % (11.0-16.0); White Blood Count 7.2 X10*3/uL (4.8-10.8)
[2023-01-21] MEDS: buPROPion HCl XL 300 MG TAB.ER.24H PO (16:33)
[2023-01-21] MEDS: clonazePAM 1 MG TABLET PO ×2 (16:33→20:27)
[2023-01-21] MEDS: Gabapentin 600 MG TABLET PO ×2 (16:33→20:27)
--- NOTE | 2023-01-21 16:35 | PC.NURSE ---
medicated per provider order, pt pending EKG.
[2023-01-21 17:01] LABS: Acetaminophen LAB < 17 mcg/mL (<30); Alanine Aminotransferase 14 U/L (0-40); Albumin Level 3.8 g/dL (3.5-5.0); Alkaline Phosphatase 74 U/L (39-117); Anion Gap 10 (12-20); Aspartate Amino Transferase 15 U/L (5-37); Bilirubin Total 0.4 mg/dL (0.0-1.0); Blood Urea Nitrogen 9 mg/dL (9-16); Calcium 9.8 mg/dL (8.4-10.2); Carbon Dioxide 29 mmol/L (22-29); Chloride 105 mmol/L (96-108); Estimated Glomerular Filt Rate > 60; Ethanol < 10 mg/dL; Glucose Random 128 mg/dL (60-115); Magnesium 2.1 mg/dL (1.6-2.6); Potassium 4.2 mmol/L (3.3-5.1); Salicylate < 5.0 mg/dL (15-30); Sodium 140 mmol/L (135-145); Total Protein 6.4 g/dL (6.5-8.0)
[2023-01-21] MEDS: Nicotine 21 MG PATCH.TD24 TRANSDERMA (18:19)
[2023-01-21 20:04] VITALS: BP 100/64; PULSE 73; RESP 16; TEMP 36.1; O2SAT 98
[2023-01-21] MEDS: Venlafaxine HCl ER 75 MG CAP.ER.24H PO (20:27)
[2023-01-21] MEDS: busPIRone HCl 10 MG TABLET 20 MG PO (20:27)
[2023-01-21] MEDS: Venlafaxine HCl ER 150 MG CAP.ER.24H PO (20:27)
--- NOTE | 2023-01-22 04:37 | PC.NURSE ---
Patient is in bed appears sleeping, no distress observed/reported, behavior non concerning, affect flat and mood depressed, medication compliant,patient got evaluated by care team, patient engaged well, disposition is ALEXSANDRA follow up, behavior non concerning, will continue to monitor, will continue to monitor.
[2023-01-22 06:22] VITALS: BP 149/85; PULSE 92; RESP 17; TEMP 36.7; O2SAT 92
--- NOTE | 2023-01-22 06:57 | PC.NURSE ---
patient appears to remain asleep at present respirations are even and unlabored patient appears in no distress
[2023-01-22 08:50] VITALS: BP 152/86; PULSE 104; RESP 14; TEMP 36.8; O2SAT 93
[2023-01-22] MEDS: busPIRone HCl 10 MG TABLET 15 MG PO ×2 (09:31→14:23)
[2023-01-22] MEDS: buPROPion HCl XL 300 MG TAB.ER.24H PO (09:31)
[2023-01-22] MEDS: Gabapentin 600 MG TABLET PO ×2 (09:32→14:24)
[2023-01-22] MEDS: clonazePAM 1 MG TABLET PO ×2 (09:32→14:24)
--- NOTE | 2023-01-22 13:13 | MHC.RECOVRN ---
Met with pt in [facility] after CARE Team requested t/w to meet with pt to discuss substance use. Pt laying in bed, asleep, easily wakes to voice. Pt reports using 5 bags heroin daily, [place], x years. Pt also reports occaisonal IN cocaine use. Pt is connected with [facility] in [place], currently on 95 mg methadone x 1 year. Difficult to engage pt in discussion regarding substance use as pt in state of grief. However, pt verbalized interest in acid recovery operator. T/w will place referral. Denies other questions or concerns at this time.
--- NOTE | 2023-01-22 13:42 | MHC.CARE ---
patient has been given grief/ bereavement resources, has discussed recovery coaching with machine hand and call has been made to his former OP, [facility] re: reopening case, w VM left for his former therapist and patient given the contact number for this as well. He is requesting d/c home, denying SI HI, no psychosis observed or reported.
== END 2023-01-22 14:37 | disposition home or self-care (01) ==
PROVIDERS: Physician Assistant; Emergency Provider Internal Medicine
DX: F33.1 Major depressive disorder, recurrent, moderate (principal); I45.81 Long QT syndrome; Z20.822 Contact with and (suspected) exposure to COVID-19; Z20.828 Contact with and (suspected) exposure to other viral communicable diseases; Z79.899 Other long term (current) drug therapy
CPT/HCPCS: 80053; 80143; 80179; 80307; 81003; 82077; 83735; 85025; 87635; 93005; 99285

== ENCOUNTER 2023-01-27 16:00 | Emergency (ER) | payer MEDICARE, MEDICAID, SELFPAY ==
[2023-01-27 16:13] VITALS: BP 122/75; BP 148/86; PULSE 92; PULSE 98; RESP 18; TEMP 36.4; O2SAT 96; O2SAT 98; BMI 22.3
--- NOTE | 2023-01-27 16:14 | ED_ITS ---
HPI - Psych General Chief Complaint: ETOH/Substance Use Stated Complaint: withdraws Time Seen by Provider: 01/27/23 16:07 History of Present Illness HPI Narrative: Patient is a 47-year-old male with a history polysubstance abuse. Positive history depression. Patient stopped using heroin 5 days ago. Did not take his usual psychiatric medication. Came in help. Patient was seen by [facility] outpatient sent in for further evaluation. Patient denies any suicidal homicidal ideation. wants to go to detox. Admits to using cocaine. Related Data Home Medications Medication Instructions Recorded Confirmed bupropion HCl 300 mg 24 hr tablet, 1 tab PO QAM 01/21/23 01/21/23 extended release buspirone 10 mg tablet 10 mg PO CONT. PER PROTOCOL 01/21/23 01/21/23 clonazepam 1 mg tablet 1 mg PO CONT. PER PROTOCOL 01/21/23 01/21/23 gabapentin 600 mg tablet 1 tab PO TID 01/21/23 01/21/23 venlafaxine 150 mg 1 cap PO BEDTIME 01/21/23 01/21/23 capsule,extended release 24 hr venlafaxine 75 mg capsule,extended 1 cap PO QPM 01/21/23 01/21/23 release 24 hr Allergies Allergy/AdvReac Type Severity Reaction Status Date / Time egg Allergy Gastrointestinal Verified 01/21/23 15:53 Upset mayonnaise Allergy Gastrointestinal Verified 01/21/23 15:53 Upset onion Allergy Gastrointestinal Verified 01/21/23 15:53 Upset Peppers, Green Allergy Gastrointestinal Verified 01/21/23 15:53 Upset Review of Systems Review of Systems: Positive depression, positive polysubstance abuse Yes all other systems are reviewed and are negative [facility] Past Medical History Attestation statement: The following information was validated with the patient. Social History Social History Alcohol intake: never Substance Use Type: Marijuana Advance Directives: No Advance Directives Information Provided: No Physical Exam Vital Signs: Vital Signs: Last Vital Signs Temp 98.0 F 01/28/23 00:00 Pulse 80 01/28/23 00:00 Resp 16 01/28/23 00:00 BP 149/74 H 01/28/23 00:00 Pulse Ox 97 01/28/23 00:00 O2 Del Method Room Air 01/28/23 00:00 BMI result Body Mass Index 22.3 Appearance: Alert. Oriented X3. No acute distress. Eyes: Pupils equal, round and reactive to light. ENT: Pharynx normal. Neck: Normal inspection. Neck supple. No lymph nodes noted. No crepitus CVS: Normal heart rate and rhythm. Pulses normal. Normal S1 and S2 Respiratory: No respiratory distress. Breath sounds normal. No Wheezing. No rales Abdomen: Soft and nontender. No rigidity. No distention. good BS x4 Skin: Skin warm and dry. Normal skin color. Normal skin turgor. Extremities: No lower extremity edema. Neurovascular intact to all extremities. No Lacerations. No Rash Neuro: Oriented X 3. No motor deficit. No sensory deficit. Moving all extermi ties. No slurred speech Medications Administered Discontinued Medications Generic Name Dose Route Start Last Admin Trade Name Freq PRN Reason Stop Dose Admin Buprenorphine/Naloxone 1 film 01/27/23 16:12 01/27/23 16:29 Buprenorphine/Naloxone 8/2 Mg Film SUBLINGUAL 01/27/23 16:13 1 film ONCE ONE Administration Medical Decision Making Medical Decision Making [facility] Narrative: Positive history of polysubstance abuse. Patient did not take any heroin for the last 5 days. Will go ahead and give patient a dose of Suboxone. Baseline labs ordered. Will get care team evaluation patient. Differential Diagnosis Differential Diagnoses: The differential diagnosis associated with the presentation includes Polysubstance abuse. Depression Lab Data [facility] Lab Attestation statement: I reviewed the patient's lab results. 01/27/23 19:01 01/27/23 21:03 Labs: Lab Results 01/27/23 01/27/23 01/27/23 Range/Units 17:09 19:01 21:03 WBC 11.3 H (4.8-10.8) X10*3/uL RBC 4.92 (4.60-5.80) X10*6/uL Hgb 14.9 (14.0-18.0) g/dl Hct 41.1 L (42.0-52.0) % MCV 83.5 (80.0-98.0) fL MCH 30.3 (27.0-33.0) pg MCHC 36.3 H (31.0-36.0) g/dl RDW 13.1 (11.0-16.0) % Plt Count 192 (160-400) X10*3/uL MPV 10.8 (9.4-12.4) fL Immature Gran % (Auto) 0.9 H (0.0-0.4) % Neut % (Auto) 82.3 H (45-73) % Lymph % (Auto) 11.9 L (20-40) % [place] % (Auto) 4.4 (2-11) % Eos % (Auto) 0.1 (0-4) % Baso % (Auto) 0.4 (0-2) % Lymph # (Auto) 1.3 (1.2-4.9) X10*3/uL [place] # (Auto) 0.5 (0.1-1.2) X10*3/uL Eos # (Auto) 0.0 (0.0-0.4) X10*3/uL Baso # (Auto) 0.0 (0.0-0.2) X10*3/uL Abs Immat Gran (auto) 0.10 H (0.00-0.03) X10*3/uL Absolute Neuts (auto) 9.3 H (2.0-8.3) x10*3/uL Absolute Nucleated RBC 0.000 (0.0-0.012) X10*3/uL Nucleated RBC % (auto) 0.0 (0.0-0.2) /100WBC Sodium 142 (135-145) mmol/L Potassium 3.8 (3.3-5.1) mmol/L Chloride 103 (96-108) mmol/L Carbon Dioxide 27 (22-29) mmol/L Anion Gap 16 (12-20) BUN 16 (9-16) mg/dL Creatinine 0.83 (0.5-1.4) mg/dL Estim Creat Clear Calc 100.6 Estimated GFR > 60 Random Glucose 108 (60-115) mg/dL Calcium 10.4 H D (8.4-10.2) mg/dL Total Bilirubin 0.7 (0.0-1.0) mg/dL Direct Bilirubin 0.2 (0.0-0.5) mg/dL AST 13 (5-37) U/L ALT 12 (0-40) U/L Alkaline Phosphatase 84 (39-117) U/L Total Protein 7.0 (6.5-8.0) g/dL Albumin 4.0 (3.5-5.0) g/dL Urine Opiates Screen (Not Detect) Urine Fentanyl Screen (Not Detect) Ur Barbiturates Screen (Not Detect) Ur Phencyclidine Scrn (Not Detect) Ur Amphetamines Screen (Not Detect) U Benzodiazepines Scrn (Not Detect) Urine Cocaine Screen (Not Detect) U Marijuana (THC) Screen (Not Detect) Ethyl Alcohol < 10 mg/dL COVID-19 (MOLLY) Negative (Negative) COVID-19 Clin Com See Note 01/27/23 01/28/23 Range/Units 21:03 00:23 WBC (4.8-10.8) X10*3/uL RBC (4.60-5.80) X10*6/uL Hgb (14.0-18.0) g/dl Hct (42.0-52.0) % MCV (80.0-98.0) fL MCH (27.0-33.0) pg MCHC (31.0-36.0) g/dl RDW (11.0-16.0) % Plt Count (160-400) X10*3/uL MPV (9.4-12.4) fL Immature Gran % (Auto) (0.0-0.4) % Neut % (Auto) (45-73) % Lymph % (Auto) (20-40) % [place] % (Auto) (2-11) % Eos % (Auto) (0-4) % Baso % (Auto) (0-2) % Lymph # (Auto) (1.2-4.9) X10*3/uL [place] # (Auto) (0.1-1.2) X10*3/uL Eos # (Auto) (0.0-0.4) X10*3/uL Baso # (Auto) (0.0-0.2) X10*3/uL Abs Immat Gran (auto) (0.00-0.03) X10*3/uL Absolute Neuts (auto) (2.0-8.3) x10*3/uL Absolute Nucleated RBC (0.0-0.012) X10*3/uL Nucleated RBC % (auto) (0.0-0.2) /100WBC Sodium (135-145) mmol/L Potassium (3.3-5.1) mmol/L Chloride (96-108) mmol/L Carbon Dioxide (22-29) mmol/L Anion Gap (12-20) BUN (9-16) mg/dL Creatinine (0.5-1.4) mg/dL Estim Creat Clear Calc Estimated GFR Random Glucose (60-115) mg/dL Calcium (8.4-10.2) mg/dL Total Bilirubin (0.0-1.0) mg/dL Direct Bilirubin (0.0-0.5) mg/dL AST (5-37) U/L ALT (0-40) U/L Alkaline Phosphatase (39-117) U/L Total Protein (6.5-8.0) g/dL Albumin (3.5-5.0) g/dL Urine Opiates Screen Not Detected (Not Detect) Urine Fentanyl Screen POSITIVE H (Not Detect) Ur Barbiturates Screen Not Detected (Not Detect) Ur Phencyclidine Scrn Not Detected (Not Detect) Ur Amphetamines Screen Not Detected (Not Detect) U Benzodiazepines Scrn Not Detected (Not Detect) Urine Cocaine Screen POSITIVE H (Not Detect) U Marijuana (THC) Screen POSITIVE H (Not Detect) Ethyl Alcohol Cancelled mg/dL COVID-19 (MOLLY) (Negative) COVID-19 Clin Com Discharge Plan Discharge Clinical Impression: Substance abuse, Depression Patient Disposition: Still a Patient Prescriptions: No Action venlafaxine 75 mg capsule,extended release 24hr 1 cap PO QPM gabapentin 600 mg tablet 1 tab PO TID clonazepam 1 mg tablet 1 mg PO CONT. PER PROTOCOL venlafaxine 150 mg capsule,extended release 24hr 1 cap PO BEDTIME buspirone 10 mg tablet 10 mg PO CONT. PER PROTOCOL bupropion HCl 300 mg tablet extended release 24 hr 1 tab PO QAM Interventions: [place]-Suicide Risk Severity Scale Last Done: 01/27/23 18:59
[2023-01-27] MEDS: Buprenorphine/Naloxone 8/2 mg FILM 1 FILM SUBLINGUAL (16:29)
--- NOTE | 2023-01-27 16:32 | MHC.EDTECH ---
pt did not came in with any clothing .
--- NOTE | 2023-01-27 17:09 | MHC.EDTECH ---
PATIENT IS A DIFFICULT DRAW ,RN PRIYA AND PROVIDER JAYRO IS AWARE ,PT REFUSED TO HAVE OTHER STAFF TRY TO DRAW LABS AT THIS TIME ,BECAUSE HE SAID HE IS DEHYDRATED ,PITCHER OF ICE WATER GIVEN .
[2023-01-27 17:50] LABS: COVID-19 Test Negative (Negative); IDNOW Serial# BCCEAD1C
--- NOTE | 2023-01-27 17:51 | MHC.CARE ---
Care Team got a call from [facility] co-response in [place] reporting that Reg was seen today in the community. They reported that they were attempting to assess him at [facility] for assessment but was unable to due to his inability to walk. He was reported to have withdrawal symptoms and was sent to ED for medical clearance.
[2023-01-27 18:00] VITALS: BP 146/85; PULSE 94; RESP 16; TEMP 36.3; O2SAT 98
--- NOTE | 2023-01-27 18:13 | MHC.EDTECH ---
1800 rounding done ,vitals sign taken ,pt was given 2 ham sandwich and radha sandy for dinner .
--- NOTE | 2023-01-27 19:00 | PC.NURSE ---
patient able to make needs known. call garcia within reach. no signs of acute withdrawal at this time. will CTM
[2023-01-27 19:06] LABS: MANUAL DIFF FLAG NO
--- NOTE | 2023-01-27 19:07 | MHC.EDTECH ---
pt blood drawn and sent to lab .
--- NOTE | 2023-01-27 19:09 | MHC.RECOVSUP ---
Reason for consult: Withdrawal o Current location: ED#5 o Identified substance use concern: Cocaine/Heroin <del>-</del> <del>Overdose</del> - Withdrawal <del>-</del> <del>Seeking</del> <del>ATS</del> <del>(detox)</del> <del>-</del> <del>Support</del> ? Intervention: <del>o</del> <del>ATS</del> <del>bed</del> <del>search</del> <del>started/completed/in</del> <del>process</del> <del>o</del> <del>MAT</del> <del>started</del> <del>or</del> <del>to</del> <del>be</del> <del>started</del> <del>o</del> <del>Community</del> <del>resources</del> <del>provided</del> <del>o</del> <del>Harm</del> <del>reduction</del> <del>discussion</del> ? Plan: <del>o</del> <del>Referral</del> <del>to</del> <del>[facility]</del> <del>o</del> <del>Bed</del> <del>search</del> <del>in</del> <del>progress</del> <del>to</del> <del>o</del> <del>Follow</del> <del>up</del> <del>tomorrow</del> o Patient awaiting crisis evaluation <del>o</del> <del>Patient</del> <del>to</del> <del>follow</del> <del>up</del> <del>with</del> <del>[facility]</del> <del>after</del> <del>discharge</del> ? Additional information: I was able to meet with the care team and pt will be seen first by the care team. I attempted to speak with pt but he was asleep. I will meet with him after being seen by the care team
[2023-01-27 19:12] LABS: Basophils Percent Auto 0.4 % (0-2); Eosinophils Percent Auto 0.1 % (0-4); Hematocrit 41.1 % (42.0-52.0); Hemoglobin 14.9 g/dl (14.0-18.0); Imm Gran Pct Auto 0.9 % (0.0-0.4); Lymphocytes Absolute Auto 1.3 X10*3/uL (1.2-4.9); Lymphocytes Percent Auto 11.9 % (20-40); Mean Corpuscular HGB Conc 36.3 g/dl (31.0-36.0); Mean Corpuscular Hemoglobin 30.3 pg (27.0-33.0); Mean Corpuscular Volume 83.5 fL (80.0-98.0); Mean Platelet Volume 10.8 fL (9.4-12.4); Monocytes Absolute Auto 0.5 X10*3/uL (0.1-1.2); Monocytes Percent Auto 4.4 % (2-11); Neutrophils Absolute Auto 9.3 x10*3/uL (2.0-8.3); Neutrophils Percent Auto 82.3 % (45-73); PLT CLUMP 1; Red Blood Count 4.92 X10*6/uL (4.60-5.80); Red Cell Distribution Width 13.1 % (11.0-16.0); SCAN SMEAR FLAG 1
[2023-01-27 20:00] VITALS: BP 149/87; PULSE 77; RESP 18; TEMP 37.3; O2SAT 98
[2023-01-27 20:31] LABS: White Blood Count 11.3 X10*3/uL (4.8-10.8)
[2023-01-27 20:34] LABS: Platelet Count 192 X10*3/uL (160-400)
[2023-01-27 21:39] LABS: Alanine Aminotransferase 12 U/L (0-40); Alkaline Phosphatase 84 U/L (39-117); Anion Gap 16 (12-20); Aspartate Amino Transferase 13 U/L (5-37); Bilirubin Direct 0.2 mg/dL (0.0-0.5); Bilirubin Total 0.7 mg/dL (0.0-1.0); Blood Urea Nitrogen 16 mg/dL (9-16); Calcium 10.4 mg/dL (8.4-10.2); Carbon Dioxide 27 mmol/L (22-29); Chloride 103 mmol/L (96-108); Creatinine Clr Calc Pharmacy 100.6; Estimated Glomerular Filt Rate > 60; Ethanol < 10 mg/dL; Glucose Random 108 mg/dL (60-115); Potassium 3.8 mmol/L (3.3-5.1); Sodium 142 mmol/L (135-145)
[2023-01-27 22:00] VITALS: BP 145/61; PULSE 85; RESP 16; TEMP 36.3; O2SAT 97
--- NOTE | 2023-01-27 22:00 | MHC.EDTECH ---
pt 2200 rounding done ,vitals sign taken ,pt resting quietly in bed .
--- NOTE | 2023-01-27 22:11 | PC.NURSE ---
Pt a&o, no sob or chest pain, pt given pillow, warm blanket and remote for TV, pt denies any withdrawal symptoms at this time. Will continue to monitor.
[2023-01-28] VITALS (7 sets, daily range): BP systolic 122–150; BP diastolic 69–87; PULSE 74–88; RESP 12–16; TEMP 36.5–37.8; O2SAT 95–99
--- NOTE | 2023-01-28 00:27 | MHC.EDTECH ---
pt 0000 rounding done ,vitals sign taken pt urine sample collected and sent to lab ,this pct asked pt if he needed anything to eat or drink ,pt said yes apple juice ,pt awake watching television .
[2023-01-28 00:39] LABS: Amphetamine Screen Urine Not Detected (Not Detect); Barbiturates, Urine Not Detected (Not Detect); Benzodiazepines Screen Urine Not Detected (Not Detect); Cannabinoid Screen Urine POSITIVE (Not Detect); Cocaine Screen Urine POSITIVE (Not Detect); Fentanyl, urine POSITIVE (Not Detect); Opiate Screen Urine Not Detected (Not Detect); Phencyclidine Screen Urine Not Detected (Not Detect)
--- NOTE | 2023-01-28 01:12 | PC.NURSE ---
Pt easily arousable with verbal stimuli. Changes position in bed independently as desired. Denied any new pain and inquired about his medications. Asked for some Sprite with ice.
--- NOTE | 2023-01-28 02:10 | PC.NURSE ---
pt a&o, reporting withdrawal symptoms. Notified provider, will medicated per order. Will continue to monitor.
[2023-01-28] MEDS: LORazepam 1 MG TABLET 2 MG PO (02:15)
--- NOTE | 2023-01-28 03:40 | PC.NURSE ---
Pt easily arousable with verbal stimuli. Denies any needs. Reports being comfortable at this time. Changes position in bed independently as desired. Will continue to monitor.
--- NOTE | 2023-01-28 04:00 | MHC.EDTECH ---
0400 vitals sign taken ,pt was given fresh pitcher of ice water ,pt is independent with reposition .
--- NOTE | 2023-01-28 06:19 | PC.NURSE ---
pt resting in bed watching TV, pt reports he is not currently not having withdrawal symptoms. Will continue to monitor.
[2023-01-28] MEDS: Acetaminophen 325 MG TABLET 650 MG PO (09:07)
--- NOTE | 2023-01-28 19:47 | MHC.CARE ---
CARE Team met with Pt. Pt reported denying current SI/HI plan or intent. He reported that he has had signs of depression but he reports its due to his current substance use. He denied needing any further psychiatric intervention. He noted wanting a detox bed. Recovery will follow up.
--- NOTE | 2023-01-28 21:18 | MHC.RECOVSUP ---
? Reason for consult:OPI o? Current location:[facility]? o? Identified substance use concern:? -? Seeking ATS (detox) ? Intervention: o? ATS bed search started/completed/in process o? Community resources provided ? Plan: o? Bed search in progress to o? Follow up tomorrow? ? Additional information: submitted referral to [facility] for ATS. Please follow up tomorrow.
[2023-01-28] MEDS: Gabapentin 600 MG TABLET PO (21:32)
[2023-01-28] MEDS: busPIRone HCl 10 MG TABLET PO (21:32)
[2023-01-28] MEDS: Venlafaxine HCl ER 150 MG CAP.ER.24H PO (21:32)
[2023-01-28] MEDS: clonazePAM 1 MG TABLET PO (21:32)
--- NOTE | 2023-01-29 05:40 | PC.NURSE ---
Patient slept through the night, no distress observed/reported, medication compliant, disposition per care team is detox bed search, recovery team coordinating bed at [facility], behavior non concerning, will continue to monitor.
[2023-01-29 06:23] VITALS: BP 142/77; PULSE 75; RESP 16; TEMP 37.2; O2SAT 96
[2023-01-29] MEDS: clonazePAM 0.5 MG TABLET PO (08:21)
[2023-01-29] MEDS: clonazePAM 1 MG TABLET PO ×2 (08:21→17:01)
[2023-01-29] MEDS: busPIRone HCl 10 MG TABLET PO (08:21)
[2023-01-29] MEDS: buPROPion HCl XL 300 MG TAB.ER.24H PO (08:21)
[2023-01-29] MEDS: Gabapentin 600 MG TABLET PO ×2 (08:21→17:01)
[2023-01-29 14:03] VITALS: BP 153/99; PULSE 113; RESP 16; TEMP 36.6; O2SAT 98
--- NOTE | 2023-01-29 15:55 | MHC.RECOVSUP ---
Met with pt in [facility] after cleared by care team and requesting ATS. . Pt was not eligible at this time for ATS and also not eligible for CSS as he does not have a current prescriber and needs refills, including clonazepam. Discussed ATS for Benzodiazepine withdrawal, pt not interested at this time. Pt would like to dc home and attempt to reconnect with the provider at [facility]. Pt provided with resources including ATS facilities and recovery teams contact information if questions or concerns arise. Divya Palomo, Clinical Coordinator, and Airam Zepeda APRN aware.
--- NOTE | 2023-01-29 17:20 | PC.NURSE ---
Per Mary Ortiz from recovery, pt to d/c home today to reconnect with his outpt providers.
== END 2023-01-29 18:37 | disposition home or self-care (01) ==
PROVIDERS: Emergency Medicine Emergency Medical Services; Emergency Provider Emergency Medicine Emergency Medical Services
DX: F33.1 Major depressive disorder, recurrent, moderate (principal); F10.239 Alcohol dependence with withdrawal, unspecified; F11.19 Opioid abuse with unspecified opioid-induced disorder; F14.10 Cocaine abuse, uncomplicated; Y90.0 Blood alcohol level of less than 20 mg/100 ml; Z20.828 Contact with and (suspected) exposure to other viral communicable diseases; Z20.822 Contact with and (suspected) exposure to COVID-19; Z79.899 Other long term (current) drug therapy
CPT/HCPCS: 36415; 80048; 80076; 80307; 82077; 85025; 87635; 99285